=== PATIENT | male | born 1990 | race Caucasian/White ===

== ENCOUNTER 2018-02-16 15:54 | Emergency (ER) | payer OTHER ==
[2018-02-16 16:03] VITALS: BP 130/71; PULSE 64; RESP 18; TEMP 98.3; O2SAT 99
--- NOTE | 2018-02-16 16:14 | ED PDOC ---
HPI: Male Pain Time Seen by Provider: 02/16/18 16:13 Chief Complaint (Nursing): Male Genitourinary Chief Complaint (Provider): LEFT TESTICULAR PAIN/SWELLING History Per: Patient (28 Y/O MALE HERE WITH LEFT TESTICULAR PAIN/SWELLING NOTED X 3 DAYS. STATES HE NOTES PAIN RADIATING TO LEFT GROIN WELL. DENIES ANY HEMATURIA/BACK PAIN/FEVER.) Past Medical History Reviewed: Historical Data, Nursing Documentation, Vital Signs Vital Signs: Last Vital Signs Temp 98.3 F 02/16/18 16:02 Pulse 64 02/16/18 16:02 Resp 18 02/16/18 16:02 BP 130/71 02/16/18 16:02 Pulse Ox 99 02/16/18 16:02 - Family History Family History: States: Unknown Family Hx - Immunization History Hx Tetanus Toxoid Vaccination: No Hx Influenza Vaccination: No Hx Pneumococcal Vaccination: No - Home Medications Home Medications: Ambulatory Orders Medication Instructions Recorded Ibuprofen [Motrin Tab] 400 mg PO PRN PRN 08/14/17 oxyCODONE/Acetaminophen [Percocet 1 ea PO TID PRN #12 tab 08/14/17 5/325 mg Tab] Ibuprofen [Motrin] 600 mg PO Q8 PRN #21 tab 02/16/18 - Allergies Allergies/Adverse Reactions: Allergies Allergy/AdvReac Type Severity Reaction Status Date / Time No Known Allergies Allergy Verified 08/14/17 11:19 Review of Systems ROS Statement: Except As Marked, All Systems Reviewed And Found Negative Physical Exam - Reviewed Nursing Documentation Reviewed: Yes Vital Signs Reviewed: Yes - Physical Exam Appears: Positive for: Well, Non-toxic, No Acute Distress Head Exam: Positive for: ATRAUMATIC, NORMAL INSPECTION, NORMOCEPHALIC Skin: Positive for: Normal Color, Warm, DRY Eye Exam: Positive for: EOMI, Normal appearance, PERRL ENT: Positive for: Normal ENT Inspection Neck: Positive for: Normal, Painless ROM Cardiovascular/Chest: Positive for: Regular Rate, Rhythm Respiratory: Positive for: CNT, Normal Breath Sounds Gastrointestinal/Abdominal: Positive for: Normal Exam, Soft Male Genital Exam: Positive for: testicular tenderness (L) Back: Positive for: Normal Inspection Extremity: Positive for: Normal ROM Neurologic/Psych: Positive for: Alert, Oriented - ECG O2 Sat by Pulse Oximetry: 99 - Progress ED Course And Treament: ULTRASOUND TESTICULAR: IMPRESSION: No evidence of testicular torsion or epididymo-orchitis. Unremarkable examination. Disposition - Clinical Impression Clinical Impression: Testicular pain, left - Patient ED Disposition Is Patient to be Admitted: No - Disposition Referrals: Radha Guerra MD [Medical Doctor] - Disposition: Routine/Home Disposition Time: 18:09 Condition: FAIR Prescriptions: Ibuprofen [Motrin] 600 mg PO Q8 PRN #21 tab PRN Reason: Pain, Moderate (4-7) Instructions: How to Perform a Testicular Self-Exam Print Language: PERSIAN
[2018-02-16 16:36] LABS: URINE BILIRUBIN NEGATIVE (NEGATIVE); URINE BLOOD NEGATIVE (NEGATIVE); URINE CLARITY CLEAR (Clear); URINE COLOR YELLOW (YELLOW); URINE GLUCOSE (UA) NEG (Normal); URINE LEUKOCYTE ESTERASE NEG Leu/uL (Negative); URINE PROTEIN NEGATIVE (NEGATIVE); URINE UROBILINOGEN 0.2-1.0 mg/dL (0.2-1.0)
--- NOTE | 2018-02-16 17:20 | US ---
Date of service: 02/16/2018 HISTORY: LEFT TESTICULAR PAIN TECHNIQUE: Realtime sonography through the scrotum with color and doppler flow. COMPARISON: None Available. FINDINGS: RIGHT TESTICLE: Measures 4.5 x 3.7 x 2.3 cm. Homogeneous echotexture. No mass. Normal flow. RIGHT EPIDIDYMIS: Normal size, morphology and vascularity. LEFT TESTICLE: Measures 4.5 x 4.0 x 2.1 cm. Homogeneous echotexture. No mass. Normal flow. LEFT EPIDIDYMIS: Normal size, morphology and vascularity. HYDROCELE: None. VARICOCELE: None. OTHER FINDINGS: None. IMPRESSION: No evidence of testicular torsion or epididymo-orchitis. Unremarkable examination.
== END 2018-02-16 18:16 | disposition home or self-care (01) ==
LOC: H.ER 15:54
DX: N50.812 Left testicular pain (principal)